=== PATIENT | male | born 1975 | race Caucasian/White ===

== ENCOUNTER 2019-12-19 00:38 | Emergency (ER) | payer MEDICAID ==
[~2019-12-19] VITALS: Ht 182.9 cm; Wt 79.5 kg
[~2019-12-19 00:38] MED LIST: CEPH-571 PO; HYDR-4383 PO
[2019-12-19] MEDS ORDERED: ondansetron 4mg rapidly disintigrating tab PO ONE (03:25)
[2019-12-19] MEDS ORDERED: HYDROcodone/acetaminophen 10/325mg tab PO ONE (03:25)
[2019-12-19 03:51] VITALS: BP 140/99
[2019-12-19] MEDS ORDERED: HYDR-3965 PO (03:58)
[2019-12-19] MEDS ORDERED: ONDA4TAB6 PO (03:58)
== END 2019-12-19 04:05 | disposition home or self-care (01) ==
LOC: ER 00:38
DX: S89.92XA Unspecified injury of left lower leg, initial encounter (principal); M25.462 Effusion, left knee; Z56.0 Unemployment, unspecified; Z88.0 Allergy status to penicillin; Z88.6 Allergy status to analgesic agent; Z79.899 Other long term (current) drug therapy; X58.XXXA Exposure to other specified factors, initial encounter; Y93.89 Activity, other specified; Y92.89 Other specified places as the place of occurrence of the external cause; Y99.8 Other external cause status
CPT/HCPCS: 29505; 73564; 99283

== ENCOUNTER 2020-03-21 11:40 | Emergency (ER) | payer MEDICAID ==
[~2020-03-21] VITALS: Ht 182.9 cm; Wt 76.5 kg
[~2020-03-21 11:40] MED LIST changes: +ONDA4TAB6 PO
[2020-03-21 14:55] VITALS: BP 146/106
== END 2020-03-21 14:48 | disposition home or self-care (01) ==
LOC: ER 11:41
DX: I10 Essential (primary) hypertension (principal); F17.210 Nicotine dependence, cigarettes, uncomplicated; F15.90 Other stimulant use, unspecified, uncomplicated; R41.0 Disorientation, unspecified; Z56.0 Unemployment, unspecified; Z88.0 Allergy status to penicillin; Z88.5 Allergy status to narcotic agent; Z88.6 Allergy status to analgesic agent; Z79.899 Other long term (current) drug therapy
CPT/HCPCS: 93005; 99283

== ENCOUNTER 2020-08-25 16:26 | Emergency (ER) | payer MEDICAID ==
[~2020-08-25] VITALS: Ht 182.9 cm; Wt 81.0 kg
[2020-08-25 16:57] VITALS: BP 159/109
[2020-08-25] MEDS ORDERED: CLIN300C70 PO (17:29)
[2020-08-25] MEDS ORDERED: IBUP-1984 PO (17:29)
[2020-08-25] MEDS ORDERED: ibuprofen tablet 400 MG TABLET PO ONE (17:30)
== END 2020-08-25 17:51 | disposition home or self-care (01) ==
LOC: ER 16:27
DX: K02.9 Dental caries, unspecified (principal); K08.89 Other specified disorders of teeth and supporting structures; F15.90 Other stimulant use, unspecified, uncomplicated; Z56.0 Unemployment, unspecified; Z88.0 Allergy status to penicillin; Z88.5 Allergy status to narcotic agent; Z88.8 Allergy status to other drugs, medicaments and biological substances; Z79.2 Long term (current) use of antibiotics; Z79.899 Other long term (current) drug therapy
CPT/HCPCS: 99283

== ENCOUNTER 2021-05-11 12:24 | Emergency (ER) | payer MEDICAID ==
[~2021-05-11] VITALS: Ht 182.9 cm; Wt 90.0 kg
[2021-05-11 12:30] VITALS: BP 174/129
[2021-05-11] MEDS ORDERED: ketorolac tromethamine 15mg/ml inj. IM ONE (12:40)
[2021-05-11] MEDS ORDERED: HYDROcodone/acetaminophen 5mg/325mg tablet PO ONE (12:40)
[2021-05-11] MEDS ORDERED: CLIN300C70 PO (12:40)
[2021-05-11] MEDS ORDERED: IBUP-1984 PO (12:40)
[2021-05-11] MEDS ORDERED: ondansetron 4mg rapidly disintigrating tab PO ONE (12:40)
[2021-05-11] MEDS ORDERED: HYDR-3965 PO (13:00)
== END 2021-05-11 13:07 | disposition home or self-care (01) ==
LOC: ER 12:25
DX: K08.89 Other specified disorders of teeth and supporting structures (principal); G43.909 Migraine, unspecified, not intractable, without status migrainosus; F15.90 Other stimulant use, unspecified, uncomplicated; Z56.0 Unemployment, unspecified; Z88.0 Allergy status to penicillin; Z88.8 Allergy status to other drugs, medicaments and biological substances; Z88.5 Allergy status to narcotic agent; Z79.2 Long term (current) use of antibiotics; Z79.899 Other long term (current) drug therapy
CPT/HCPCS: 96372; 99283; J1885

== ENCOUNTER 2021-06-25 20:20 | Emergency (ER) | payer MEDICAID ==
[~2021-06-25] VITALS: Ht 182.9 cm; Wt 90.9 kg
[2021-06-25 21:47] LABS: BASOPHILS % (AUTO) 0.2 % (0-1); EOSINOPHILS % (AUTO) 0.1 % (0-6); HEMATOCRIT 41.5 % (42.0-52.0); HEMOGLOBIN 14.1 g/dl (14.0-17.9); LYMPHOCYTES # (AUTO) 0.8 X10'3 (1.1-4.8); LYMPHOCYTES % (AUTO) 9.2 % (21-51); MEAN CORPUSCULAR HEMOGLOBIN 30.3 PG (27.0-31.0); MEAN CORPUSCULAR HGB CONC 33.9 g/dL (33.0-36.5); MEAN CORPUSCULAR VOLUME 89.4 FL (78-98); MEAN PLATELET VOLUME 7.4 FL (7.4-10.4); MONOCYTES # (AUTO) 0.9 X10'3 (0-0.9); MONOCYTES % (AUTO) 9.9 % (2-12); NEUTROPHILS # (AUTO) 7.1 X10'3 (1.8-7.7); NEUTROPHILS % (AUTO) 80.6 % (42-75); PLATELET COUNT 229 X10'3 (140-440); RED BLOOD COUNT 4.65 X10'6 (4.70-6.10); RED CELL DISTRIBUTION WIDTH 14.8 % (11.5-14.5); WHITE BLOOD COUNT 8.8 X10'3 (4.5-11.0)
[2021-06-25 21:56] LABS: ALANINE AMINOTRANSFERASE 24 U/L (12-78); ALBUMIN 3.6 G/DL (3.4-5.0); ALKALINE PHOSPHATASE 49 IU/L (46-116); ANION GAP 10 (8-16); ASPARTATE AMINO TRANSFERASE 17 U/L (10-37); BILIRUBIN,TOTAL 0.5 MG/DL (0.1-1.0); BLOOD UREA NITROGEN 15 MG/DL (7-18); BUN/CREATININE RATIO 14.6 (5.4-32.0); CALCIUM 8.7 MG/DL (8.5-10.1); CHLORIDE 98 MMOL/L (99-107); CREATININE 1.03 MG/DL (0.60-1.10); GLUCOSE 100 MG/DL (70-104); LIPASE 53 U/L (73-393); POTASSIUM 3.8 MMOL/L (3.5-5.1); SODIUM 135 MMOL/L (135-145); TOTAL CARBON DIOXIDE 26.7 MMOL/L (24-32); TOTAL PROTEIN 7.3 G/DL (6.4-8.2); eGFR 77 ML/MIN
[2021-06-25] MEDS ORDERED: ONDA4TAB12 PO (22:33)
[2021-06-25 22:44] VITALS: BP 138/94
== END 2021-06-25 22:45 | disposition home or self-care (01) ==
LOC: ER 20:21
DX: R10.13 Epigastric pain (principal); R11.0 Nausea; R51.9 Headache, unspecified; F15.90 Other stimulant use, unspecified, uncomplicated; Z56.0 Unemployment, unspecified; Z88.0 Allergy status to penicillin; Z88.5 Allergy status to narcotic agent; Z88.8 Allergy status to other drugs, medicaments and biological substances; Z79.2 Long term (current) use of antibiotics; Z79.899 Other long term (current) drug therapy
CPT/HCPCS: 36415; 71045; 80053; 83690; 85025; 93005; 99285

== ENCOUNTER 2022-04-29 01:28 | Emergency (ER) | payer MEDICAID ==
[~2022-04-29] VITALS: Ht 182.9 cm; Wt 61.0 kg
[~2022-04-29 01:28] MED LIST changes: +ONDA4TAB12 PO
[2022-04-29 01:41] VITALS: BP 153/106
== END 2022-04-29 04:11 | disposition left against medical advice (07) ==
LOC: ER 01:29
DX: K08.89 Other specified disorders of teeth and supporting structures (principal); Z53.21 Procedure and treatment not carried out due to patient leaving prior to being seen by health care provider

== ENCOUNTER 2022-05-24 09:36 | Emergency (ER) | payer MEDICAID ==
--- NOTE | 2022-05-24 10:06 | NUR ---
called pt at this time for triage ,pt left the ER lobby before even getting triage.
== END 2022-05-24 10:08 | disposition left against medical advice (07) ==
LOC: ER 09:37
DX: K08.89 Other specified disorders of teeth and supporting structures (principal); Z53.21 Procedure and treatment not carried out due to patient leaving prior to being seen by health care provider